=== PATIENT | female | born 1990 | race Two or more races ===

== ENCOUNTER → 2024-05-26 | Outpatient (CLI) | payer OTHER, SELFPAY ==
--- NOTE | 2024-05-26 10:10 | XR_ITS ---
EXAMINATION: Cervical spine, 5 views Technique: Cervical spine AP, AP odontoid, lateral, bilateral obliques, 5 views Exam date and time: May 18, 2024 1020 hrs. Indications: Neck pain beginning 3 months ago. Findings: Adequate alignment cervical vertebral bodies. No cervical fracture. Intact odontoid. Mild disc narrowing anteriorly C5-C6 No significant neural foraminal stenosis Impression: Mild disc narrowing C5-C6
== END | disposition home or self-care (01) ==
PROVIDERS: Referring Provider Orthopaedic Surgery; Visit Provider Orthopaedic Surgery
DX: M48.02 Spinal stenosis, cervical region (principal)
CPT/HCPCS: 72050